=== PATIENT | female | born 1980 | race Caucasian/White ===

== ENCOUNTER 2017-05-08 12:34 | Outpatient (CLI) | payer OTHER | END 2017-05-08 12:35 | disposition home or self-care (01) | LOC: ULT 12:34 | PROVIDERS: ATTEND Family Medicine | DX: R00.2 Palpitations (principal); I08.1 Rheumatic disorders of both mitral and tricuspid valves | CPT/HCPCS: 93306 ==

== ENCOUNTER 2023-03-22 11:59 | Outpatient (CLI) | payer BC | END 2023-03-22 12:00 | disposition home or self-care (01) | LOC: ULT 11:59 | PROVIDERS: ATTEND Nurse Practitioner Family | DX: I83.813 Varicose veins of bilateral lower extremities with pain (principal); I86.8 Varicose veins of other specified sites | CPT/HCPCS: 93970 ==